=== PATIENT | male | born 1980 | race Caucasian/White ===

== ENCOUNTER 2018-05-11 14:38 | Emergency (ER) | payer OTHER ==
[~2018-05-11] VITALS: Ht 200.7 cm; Wt 93.0 kg
== END 2018-05-11 15:54 | disposition home or self-care (01) ==
LOC: ER 14:38
DX: S82.61XD Displaced fracture of lateral malleolus of right fibula, subsequent encounter for closed fracture with routine healing (principal); M54.5 Low back pain; Z47.89 Encounter for other orthopedic aftercare; X58.XXXD Exposure to other specified factors, subsequent encounter

== ENCOUNTER 2018-05-11 16:45 | Emergency (ER) | payer OTHER ==
[~2018-05-11] VITALS: Ht 167.6 cm; Wt 93.0 kg
== END 2018-05-11 21:36 | disposition home or self-care (01) ==
LOC: ER 16:45
DX: S82.61XD Displaced fracture of lateral malleolus of right fibula, subsequent encounter for closed fracture with routine healing (principal); M54.5 Low back pain; Z47.89 Encounter for other orthopedic aftercare; X58.XXXD Exposure to other specified factors, subsequent encounter